=== PATIENT | female | born 1965 | race African-American/Black ===

== ENCOUNTER 2022-04-05 07:39 | Emergency (ER) | payer SELFPAY ==
[2022-04-05] VITALS (15 sets, daily range): BP systolic 138–164; BP diastolic 73–85; PULSE 55–78; RESP 12–20; TEMP 36.7–37.2; O2SAT 98–100
--- NOTE | ~2022-04-05 | XR_ITS ---
EXAMINATION: XR chest 2V 04/05/2022 07:54 INDICATION: Flu symptoms. Shortness of breath. PROCEDURE: 2 view chest COMPARISON: No prior studies for comparison. FINDINGS: The lungs are clear. The cardiomediastinal silhouette is within normal limits. There are no pleural effusions. There is no pneumothorax suspected. There are prominent bilateral nipple shad ows. IMPRESSION: 1: NO ACUTE CARDIOPULMONARY DISEASE. Reviewed, dictated and finalized at location A. UTE CONTROLLER
--- NOTE | 2022-04-05 07:42 | ECG_ITS ---
Measurements Intervals [place] Rate: 70 P: 71 [place]: 162 QRS: 1 QRSD: 102 T: 78 QT: 413 QTc: 446 Interpretive Statements SINUS RHYTHM DELAYED PRECORDIAL R/S TRANSITION NONSPECIFIC ST & T-WAVE ABNORMALITY- INF/HIGH LEADS NONSPECIFIC ST ELEVATION IN ANTEROLATERA LEADS BASELINE ARTIFACT- II, III BORDERLINE ECG NO PREVIOUS ECG AVAILABLE FOR COMPARISON Electronically Signed On 04-05-2022 10:08:30 UPHOL[employer] COVERS INSPECTOR by Andrea Young D.O.
[2022-04-05 08:00] LABS: Basophils Percent Auto 0.5 % (0.2-1.2); Eosinophils Absolute Auto 0.1 K/mm3 (0-0.3); Eosinophils Percent Auto 1.1 % (0-4.4); Hematocrit 37.5 % (37.0-47.0); Hemoglobin 12.5 g/dL (12.0-15.0); Immature Granulocyte Absolute 0.05 K/mm3 (0.00-0.031); Immature Granulocyte Percent A 0.7 % (0-0.5); Lymphocytes Absolute Auto 1.65 K/mm3 (0.9-3.2); Lymphocytes Percent Auto 22.4 % (18.3-44.2); Mean Corpuscular HGB Conc 33.3 g/dl (32-36); Mean Corpuscular Hemoglobin 29.8 pg (26-34); Mean Corpuscular Volume 89.3 fl (80-100); Mean Platelet Volume 11.5 fl (7.4-10.4); Monocytes Absolute Auto 0.8 K/mm3 (0.1-0.6); Monocytes Percent Auto 10.8 % (2.6-8.5); Neutrophils Absolute Auto 4.8 K/mm3 (1.3-6.7); Neutrophils Percent Auto 64.5 % (45.5-73.1); Platelet Count Result 240 k/mm3 (150-375); Red Cell Distribution Width 12.9 % (11.5-14.5); White Blood Count 7.4 K/mm3 (4.5-10.0)
[2022-04-05 08:13] LABS: Alanine Aminotransferase 30 U/L (6-35); Albumin Level 4.1 g/dL (3.5-5.1); Alkaline Phosphatase 105 U/L (38-126); Anion Gap 7 mmol/L (8-16); Aspartate Amino Transferase 33 U/L (14-36); Bilirubin,Total 0.6 mg/dL (0.2-1.3); Blood Urea Nitrogen 13 mg/dL (7-17); Calcium 9.2 mg/dL (8.4-10.2); Carbon Dioxide 27 mmol/L (22-30); Chloride 101 mmol/L (98-107); Estimated CRCL calculation 73 ml/min; Estimated Glomerular Filt Rate > 60; Glucose 308 mg/dL (65-110); Lipase 24 U/L (23-300); Partial Thromboplastin Time 23.7 SECONDS (22.3-36.8); Potassium 3.3 mmol/L (3.4-5.0); Prothrombin Time 12.5 Seconds (11.1-14.7); Sodium 135 mmol/L (137-145)
[2022-04-05 08:24] LABS: Troponin I 0.022 ng/mL (0.000-0.034)
--- NOTE | 2022-04-05 08:44 | ED.CHESTPAIN ---
HPI - Chest Pain General Chief Complaint: Chest Pain Stated Complaint: chest discomfort Time Seen by Provider: 04/05/22 07:46 Source: patient and RN notes reviewed Mode of arrival: EMS Limitations: no limitations History of Present Illness HPI narrative: This is a 56 year old female who presents for evaluation of chest pain. Patient states she has been dealing with cold symptoms for 4 days. She reports runny nose , congestion and cough. She reports approximately 1 hour ago she developed chest pain that she describes has sharp. Pain is located under her left breath. She also reports associated shortness of breath. She denies worsening pain with breathing, movement or exertion. She denies history of heart disease, DVT or PE. She reports her pain improved after getting aspirin from ambulance. She reports pain is 3/10. Related Data Allergies Allergy/AdvReac Type Severity Reaction Status Date / Time No Known Allergies Allergy Verified 04/05/22 07:41 Review of Systems Constitutional: Constitutional: Denies fever(s) and Denies weakness ENT: Reports nasal congestion and Reports sore throat Cardiovascular: Cardiovascular: Reports chest pain, Denies syncope, Denies rapid heart rate, Denies irregular heart rhythm, Reports leg edema (bilateral ankle) and Denies dyspnea Respiratory: Respiratory: Denies chest congestion, Reports cough, Denies hemoptysis, Denies excessive phlegm production and Reports dyspnea Gastrointestinal: Gastrointestinal: Denies abdominal pain, Denies hematochezia, Denies diarrhea and Denies vomiting Genitourinary: Genitourinary: Denies hematuria and Denies dysuria Musculoskeletal: Musculoskeletal: Denies joint swelling, Denies loss of height and Denies muscle weakness Neurologic: Denies syncope, Denies focal weakness and Denies weakness PMFSH Past Medical History Medical History (Updated 04/05/22 @ 17:45 by Merlyn Maldonado MD) Patient denies medical problems Surgical History Surgical History (Updated 04/05/22 @ 08:51 by Merlyn Maldonado MD) No pertinent past surgical history Social History Social History (Updated 04/05/22 @ 08:51 by Merlyn Maldonado MD) Smoking status: Current every day smoker Alcohol intake: former Substance use: former Substance use type: crack/cocaine Exam Const: General: alert Nutritional Appearance: well nourished Orientation/consciousness: patient oriented x3 Limitations: no limitations HENMT: Head: normal to inspection Eyes: EOM: EOMs intact bilaterally Neck: Neck: normal visual inspection Chest: Chest palpation & inspection: normal inspection of the chest Resp: Effort & Inspection: normal respiratory effort Auscultation: clear to auscultation bilaterally Cardio: Rate: regular rate Rhythm: regular rhythm Heart sounds: no murmurs GI: GI Palp: Yes Soft to palpation, No Tenderness to palpation present (GI), No Guarding due to palpation present (GI) and No Rigid due to palpation Auscultation: normal bowel sounds Skin: General skin exam: normal color Rashes: no rashes Wounds: no wounds Neuro: General: patient oriented x3, moves all extremities and CN's II-XI intact bilaterally Cranial nerves: Yes Nystagmus not present Speech: normal speech Gait exam (Neuro): Normal gait present Extrem: General: normal to inspection Psych: Mental Status: mental status grossly normal Affect: normal affect Attitude: cooperative Course Course Emergency Course: @1744, I was reviewing patient's chart. Her blood sugar was elevated to 300. I called her at home and notified her that she needs to see PCP for diabetes treatment. I will start on metformin. Reevaluation(s) Reevaluation #1: I Discussed with patient that no significant abnormalities. Troponin and d dimer are negative. She does not have major risk factors for PE/DVT. She is low risk per heart score. She also seems to be dealing with viral infection. Patient is stable for discharge
[2022-04-05 08:51] LABS: D Dimer 0.36 ug/mL (<0.48)
[2022-04-05 09:18] LABS: Influenza A QL RT-PCR Negative (Negative); Influenza B QL RT-PCR Negative (Negative); SARS-CoV-2 RNA PCR Negative
[2022-04-05 11:16] LABS: Troponin I 0.018 ng/mL (0.000-0.034)
== END 2022-04-05 12:13 | disposition home or self-care (01) ==
PROVIDERS: Emergency Provider General Practice
DX: R07.89 Other chest pain (principal); R73.9 Hyperglycemia, unspecified; Z20.822 Contact with and (suspected) exposure to COVID-19; F17.200 Nicotine dependence, unspecified, uncomplicated; R94.31 Abnormal electrocardiogram [ECG] [EKG]
CPT/HCPCS: 36415; 71046; 80053; 83690; 84484; 85025; 85380; 85610; 85730; 87636; 93005; 99284

== ENCOUNTER 2022-06-03 14:09 | Emergency (ER) | payer MEDICAID, SELFPAY ==
--- NOTE | ~2022-06-03 | XR_ITS ---
XR chest 2V DATE: 06/03/2022 16:23 INDICATION: Cough, cold symptoms for 4 days TECHNIQUE: PA and lateral views COMPARISON: 04/05/2022 PA and lateral chest FINDINGS: Normal heart size. Aortic arch calcification. No hilar or mediastinal enlargement. No pulmo nary infiltrate or consolidation, pleural effusion or pulmonary vascular congestion or pneumothorax. IMPRESSION: No active cardiopulmonary disease Reviewed, dictated and finalized at location L. ROD MAKER
[2022-06-03 14:11] VITALS: BP 141/93; PULSE 82; RESP 16; TEMP 36.4; O2SAT 99
[2022-06-03 15:34] VITALS: O2SAT 100
--- NOTE | 2022-06-03 16:10 | ECG_ITS ---
Measurements Intervals [place] Rate: 64 P: 28 [place]: 159 QRS: 9 QRSD: 103 T: 68 QT: 470 QTc: 488 Interpretive Statements SINUS RHYTHM RSR' IN V1 OR V2, CONSIDER RIGHT VENTRICULAR HYPERTROPHY OR RIGHT VCD NONSPECIFIC T-WAVE ABNORMALITY PROLONGED QT INTERVAL ABNORMAL ECG COMPARED TO ECG 04/05/2022 07:42:23 PROLONGED QT INTERVAL NOW PRESENT Electronically Signed On 06-03-2022 16:38:26 TECHNICAL AID by Andrea Young D.O.
[2022-06-03] MEDS: ALBUTEROL SULFATE (*SP) AEROSOL 1 PUFF 2 PUFF INHALATION (16:38)
[2022-06-03 16:53] LABS: Influenza A QL RT-PCR Negative (Negative); Influenza B QL RT-PCR Negative (Negative); RSV RNA, RT-PCR Negative (Negative); SARS-CoV-2 RNA PCR Negative
[2022-06-03 16:59] LABS: Basophils Percent Auto 0.4 % (0.2-1.2); Eosinophils Absolute Auto 0.1 K/mm3 (0-0.3); Eosinophils Percent Auto 1.6 % (0-4.4); Hemoglobin 13.4 g/dL (12.0-15.0); Immature Granulocyte Absolute 0.06 K/mm3 (0.00-0.031); Immature Granulocyte Percent A 1.1 % (0-0.5); Lymphocytes Absolute Auto 1.25 K/mm3 (0.9-3.2); Lymphocytes Percent Auto 21.9 % (18.3-44.2); Mean Corpuscular HGB Conc 32.7 g/dl (32-36); Mean Corpuscular Hemoglobin 30.1 pg (26-34); Mean Corpuscular Volume 92.1 fl (80-100); Mean Platelet Volume 11.6 fl (7.4-10.4); Monocytes Absolute Auto 0.5 K/mm3 (0.1-0.6); Monocytes Percent Auto 9.3 % (2.6-8.5); Neutrophils Absolute Auto 3.8 K/mm3 (1.3-6.7); Neutrophils Percent Auto 65.7 % (45.5-73.1); Platelet Count Result 217 k/mm3 (150-375); Red Blood Count 4.45 M/mm3 (4.2-5.4); Red Cell Distribution Width 12.7 % (11.5-14.5); White Blood Count 5.7 K/mm3 (4.5-10.0)
[2022-06-03 17:09] LABS: Alanine Aminotransferase 28 U/L (6-35); Albumin Level 4.2 g/dL (3.5-5.1); Alkaline Phosphatase 101 U/L (38-126); Anion Gap 4 mmol/L (8-16); Aspartate Amino Transferase 31 U/L (14-36); Bilirubin,Total 0.5 mg/dL (0.2-1.3); Blood Urea Nitrogen 19 mg/dL (7-17); Calcium 9.1 mg/dL (8.4-10.2); Carbon Dioxide 29 mmol/L (22-30); Chloride 102 mmol/L (98-107); Estimated CRCL calculation 66 ml/min; Estimated Glomerular Filt Rate > 60; Glucose 179 mg/dL (65-110); Potassium 3.6 mmol/L (3.4-5.0); Sodium 135 mmol/L (137-145)
[2022-06-03 17:26] LABS: Appearance Urine Cloudy (Clear); Bacteria Urine 4+ /hpf; Bilirubin Urine Negative (Negative); Blood Urine Negative (Negative); Color Urine Yellow (Yellow); Glucose Urine UA Trace mg/dL (Negative); Ketones Urine Trace mg/dL (Negative); Leukocyte Esterase Ur 2+ LEU/UL (Negative); Nitrate Urine Positive (Negative); Non Pathogenic Casts 0-2; Protein Urine Trace mg/dL (Negative); RBC Urine 0-2 /hpf (0-2); Specific Grav Ur 1.028 (1.001-1.035); Squamous Epithelial Cell Urine Few /hpf (Few); pH Urine 6.5 (5.0-9.0)
[2022-06-03 17:29] LABS: Add Urine Microscopic? YES
[2022-06-03] MEDS: ALBUTEROL SULFATE NEB 2.5 MG/3 ML INH INHALATION (18:02)
[2022-06-03] MEDS: IPRATROPIUM BR 0.02% INH SOLN 0.5 MG/2.5 ML VIAL INHALATION (18:02)
[2022-06-03 18:09] VITALS: BP 177/83; PULSE 57; RESP 14; O2SAT 100
--- NOTE | 2022-06-03 18:11 | ED.URI ---
HPI - URI/Sore Throat General Chief Complaint: Upper Respiratory Infection Stated Complaint: SOB Time Seen by Provider: 06/03/22 16:07 Source: patient, RN notes reviewed and old records reviewed Mode of arrival: ambulatory Limitations: no limitations History of Present Illness HPI Narrative: This is a 56 year old female who presents for evaluation of URI symptoms. Patient reports runny nose, congestion, and cough for 3 days. She reports wheezing and shortness of breath, but she denies chest pain. She denies fever, chills, nausea, vomiting and diarrhea. She also reports left breast lump for a few weeks. She denies any skin changes, drainage , or nipple drainage. She denies having mammogram in several years. She denies sick contacts. Related Data Allergies Allergy/AdvReac Type Severity Reaction Status Date / Time No Known Allergies Allergy Verified 06/03/22 15:38 Review of Systems Constitutional: Constitutional: Denies weakness ENT: Reports nasal congestion Cardiovascular: Cardiovascular: Denies syncope, Denies rapid heart rate, Denies irregular heart rhythm, Denies leg edema and Denies dyspnea Respiratory: Respiratory: Reports chest congestion, Reports cough, Denies hemoptysis, Denies excessive phlegm production, Reports dyspnea and Reports wheezing Gastrointestinal: Gastrointestinal: Denies abdominal pain, Denies hematochezia, Denies diarrhea and Denies vomiting Genitourinary: Genitourinary: Denies hematuria and Denies dysuria Musculoskeletal: Musculoskeletal: Denies joint swelling, Denies loss of height and Denies muscle weakness Neurologic: Denies syncope, Denies focal weakness and Denies weakness PMFSH Past Medical History Medical History (Updated 06/03/22 @ 19:42 by Merlyn Maldonado MD) Patient denies medical problems Surgical History Surgical History (Updated 04/05/22 @ 08:51 by Merlyn Maldonado MD) No pertinent past surgical history Social History Social History (Updated 04/05/22 @ 08:51 by Merlyn Maldonado MD) Smoking status: Current every day smoker Alcohol intake: former Substance use: former Substance use type: crack/cocaine Exam Const: General: no acute distress and alert Nutritional Appearance: well nourished Orientation/consciousness: patient oriented x3 Limitations: no limitations HENMT: Head: normal to inspection Ears: external ears normal Face and sinus: normal facial exam and sinuses nontender Mouth: Yes Normal oral and palatal mucosa present Throat: posterior oropharynx normal Eyes: Conjunctivae: conjunctivae normal Pupils: Equal, round and reactive pupils present EOM: EOMs intact bilaterally Neck: Neck: normal visual inspection Chest: Chest palpation & inspection: normal inspection of the chest Breast/axilla inspection: abnormal inspection of the breast (left breast at 8 0 clock lower hard nodule) Resp: Effort & Inspection: normal respiratory effort Auscultation: wheezes expiratory wheezes and throughout Other: able to speak in complete sentences Cardio: Rate: regular rate Rhythm: regular rhythm Heart sounds: no murmurs GI: GI Palp: Yes Soft to palpation, No Tenderness to palpation present (GI), No Guarding due to palpation present (GI) and No Rigid due to palpation Auscultation: normal bowel sounds Back/Spine/Pelvis: Back: no CVA tenderness Skin: General skin exam: normal color Rashes: no rashes Wounds: no wounds Neuro: General: patient oriented x3, moves all extremities and CN's II-XI intact bilaterally Cranial nerves: Yes Nystagmus not present Speech: normal speech Gait exam (Neuro): Normal gait present Psych: Mental Status: mental status grossly normal Affect: normal affect Attitude: cooperative Course Reevaluation(s) Reevaluation #1: Patient reports that she feels better. I Discussed she will be treated for bronchitis. I also stressed that she needs to follow up with for evaluation of left breast lump with mammogram at least.
== END 2022-06-03 19:29 | disposition home or self-care (01) ==
PROVIDERS: Emergency Medicine; Emergency Provider General Practice
DX: J20.9 Acute bronchitis, unspecified (principal); J06.9 Acute upper respiratory infection, unspecified; N39.0 Urinary tract infection, site not specified; N63.24 Unspecified lump in the left breast, lower inner quadrant; Z20.822 Contact with and (suspected) exposure to COVID-19; F17.200 Nicotine dependence, unspecified, uncomplicated; R94.31 Abnormal electrocardiogram [ECG] [EKG]
CPT/HCPCS: 36415; 71046; 80053; 81001; 85025; 87077; 87086; 87186; 87637; 93005; 94640; 94664; 99283; A9270

== ENCOUNTER 2022-08-21 07:30 | Emergency (ER) | payer OTHER, SELFPAY ==
[2022-08-21] VITALS (8 sets, daily range): BP systolic 141–160; BP diastolic 75–94; PULSE 56–75; RESP 12–19; O2SAT 94–100
--- NOTE | ~2022-08-21 | CT_ITS ---
EXAMINATION: CT BRAIN W/O DATE: 08/21/2022 08:02 INDICATION: Altered mental status TECHNIQUE: Computed tomography (CT) of the head was performed without intravenous contrast. The dose- length product was 605.33 mGy-cm. Automated exposure control and iterative reconstruction technique w ere employed. COMPARISON: No prior studies for comparison. FINDINGS: Normal brain parenchymal volume for age. Normal sanchez-white differentiation. No acute intrac ranial hemorrhage, infarction, mass or mass effect. No ventriculomegaly or midline shift. Midline sagittal images demonstrate a normal corpus callosum, c raniovertebral junction and sella turcica. Basilar cisterns are patent. Paranasal sinuses and mastoids are pneumatized. No depressed skull fractures. IMPRESSION: 1. No acute intracranial abnormality. Reviewed, dictated and finalized at location D.
--- NOTE | 2022-08-21 07:37 | ECG_ITS ---
Measurements Intervals [place] Rate: 55 P: 64 [place]: 167 QRS: -7 QRSD: 106 T: 61 QT: 465 QTc: 449 Interpretive Statements SINUS BRADYCARDIA WITH SINUS ARRHYTHMIA CANNOT RULE OUT SEPTAL INFARCT, AGE INDETERMINATE BASELINE WANDER- V3-V4 ABNORMAL ECG COMPARED TO ECG 06/03/2022 16:29:14 SINUS BRADYCARDIA NOW PRESENT SINUS ARRHYTHMIA NOW PRESENT MYOCARDIAL INFARCT FINDING NOW PRESENT PROLONGED QT INTERVAL NO LONGER PRESENT Electronically Signed On 08-21-2022 8:13:45 CDT by Andrea Young D.O.
[2022-08-21 07:42] LABS: Glucose Point of Care 180 mg/dl (65-105)
[2022-08-21 07:46] LABS: Basophils Absolute Auto 0.1 K/mm3 (0.0-0.1); Basophils Percent Auto 0.9 % (0.2-1.2); Eosinophils Absolute Auto 0.1 K/mm3 (0-0.3); Eosinophils Percent Auto 1.6 % (0-4.4); Hematocrit 34.6 % (37.0-47.0); Hemoglobin 11.2 g/dL (12.0-15.0); Immature Granulocyte Absolute 0.02 K/mm3 (0.00-0.031); Immature Granulocyte Percent A 0.4 % (0-0.5); Lymphocytes Absolute Auto 1.92 K/mm3 (0.9-3.2); Lymphocytes Percent Auto 33.9 % (18.3-44.2); Mean Corpuscular HGB Conc 32.4 g/dl (32-36); Mean Corpuscular Hemoglobin 29.7 pg (26-34); Mean Corpuscular Volume 91.8 fl (80-100); Mean Platelet Volume 12.2 fl (7.4-10.4); Monocytes Absolute Auto 0.5 K/mm3 (0.1-0.6); Monocytes Percent Auto 8.3 % (2.6-8.5); Neutrophils Absolute Auto 3.1 K/mm3 (1.3-6.7); Neutrophils Percent Auto 54.9 % (45.5-73.1); Platelet Count Result 204 k/mm3 (150-375); Red Blood Count 3.77 M/mm3 (4.2-5.4); Red Cell Distribution Width 13.2 % (11.5-14.5); White Blood Count 5.7 K/mm3 (4.5-10.0)
[2022-08-21] MEDS: SODIUM CHLORIDE 0.9% IV 1,000 ML 999 ML IV CONT (07:55)
[2022-08-21 07:57] LABS: Alanine Aminotransferase 27 U/L (6-35); Albumin Level 3.8 g/dL (3.5-5.1); Alkaline Phosphatase 86 U/L (38-126); Anion Gap 2 mmol/L (8-16); Aspartate Amino Transferase 42 U/L (14-36); Bilirubin,Total 0.5 mg/dL (0.2-1.3); Blood Urea Nitrogen 14 mg/dL (7-17); Calcium 8.9 mg/dL (8.4-10.2); Carbon Dioxide 30 mmol/L (22-30); Chloride 103 mmol/L (98-107); Estimated CRCL calculation 85 ml/min; Estimated Glomerular Filt Rate > 60; Glucose 200 mg/dL (65-110); Potassium 3.7 mmol/L (3.4-5.0); Sodium 135 mmol/L (137-145)
--- NOTE | 2022-08-21 08:17 | ED.GENADULT ---
HPI - General Adult General Chief complaint: Syncope Stated complaint: syncopy Time Seen by Provider: 08/21/22 07:36 History of Present Illness HPI narrative: 57-year-old female presented the emergency department for evaluation of some confusion and not feeling well. Patient states while she was at work she felt warm and dizzy and lightheaded. Patient states she did not actually have loss of consciousness. Patient is a type II diabetic and states her blood sugars were running high this morning. When EMS checked her blood sugars were in the 200 range. Upon arrival to the emerged department patient states she does feel improved. Patient states she no longer feels confused lightheaded or dizzy. During this episode patient denied any associated focal numbness or weakness. Patient states she does have some chronic right leg pain has been ongoing for the last few months. Related Data Allergies Allergy/AdvReac Type Severity Reaction Status Date / Time No Known Allergies Allergy Verified 06/03/22 15:38 Review of Systems Review of Systems: All systems reviewed & are unremarkable except as noted in HPI and below PMFSH Past Medical History Medical History (Updated 08/21/22 @ 10:03 by Martin Santos MD) Patient denies medical problems Surgical History Surgical History (Updated 04/05/22 @ 08:51 by Merlyn Maldonado MD) No pertinent past surgical history Social History Social History (Updated 04/05/22 @ 08:51 by Merlyn Maldonado MD) Smoking status: Current every day smoker Alcohol intake: former Substance use: former Substance use type: crack/cocaine Exam Narrative: APPEARANCE: Well appearing, no pain, no distress, well-nourished. HEAD: normocephalic, atraumatic. EYES: PERRLA/EOMI, conjunctivae clear. NOSE: Normal no drainage NECK: Supple. No adenopathy, no masses. RESPIRATORY: Airway patent, respirations nonlabored. Clear to auscultation bilaterally, no rales, rhonchi, wheezing. CARDIOVASCULAR: Regular rate and rhythm without murmurs rubs or gallops. ABDOMINAL: Soft, nontender, nondistended, normal bowel sounds MUSCULOSKELETAL: Moves all extremities. Strength/ROM intact, No edema, No calf tenderness. NEURO: Alert. Cranial nerves II through XII intact. Grossly SKIN: Warm, dry. Normal Color Course Course Emergency Course: 57-year-old female presented the ED for evaluation of near syncope. Patient does feel improved in the ED. Patient was treated with IV fluids. Patient's orthostatic vitals were within normal limits. Patient is afebrile with no leukocytosis. Patient's creatinine is 0.6. Patient's glucose is stable at 200. On reevaluation patient states he does feel improved. Head CT showed no acute intracranial normalities. Patient was able to ambulate without issue. Patient had normal orthostatic vitals. Patient was encouraged of close follow-up with her primary care physician. Patient was updated on the results of her work-up. Patient was also educated on reasons to return to the emergency room. All questions and concerns were addressed. Vital Signs Vital signs: Vital Signs Pulse Rate 56 L 08/21/22 07:34 Respiratory Rate 12 08/21/22 07:34 Blood Pressure 148/86 H 08/21/22 07:34 Pulse Oximetry 100 08/21/22 07:34 Oxygen Delivery Room Air 08/21/22 07:34 Pulse Rate 66 08/21/22 10:29 Respiratory Rate 14 08/21/22 10:29 Blood Pressure 141/75 H 08/21/22 10:29 Pulse Oximetry 94 08/21/22 10:29 Oxygen Delivery Room Air 08/21/22 07:34 Medical Decision Making Differential Diagnosis Differential Diagnosis: Hypoglycemia, orthostatic hypotension, vasovagal syncope Vital Signs Vital Signs: Vital Signs Pulse Rate 56 L 08/21/22 07:34 Respiratory Rate 12 08/21/22 07:34 Blood Pressure 148/86 H 08/21/22 07:34 Pulse Oximetry 100 08/21/22 07:34 Oxygen Delivery Room Air 08/21/22 07:34 Pulse Rate 66 08/21/22 10:29 Respiratory Rate 14
[2022-08-21 08:40] LABS: Appearance Urine Turbid (Clear); Bacteria Urine None Seen /hpf; Bilirubin Urine Negative (Negative); Blood Urine Negative (Negative); Color Urine Dark Yellow (Yellow); Glucose Urine UA Trace mg/dL (Negative); Hyaline Casts Urine Present /lpf; Ketones Urine Trace mg/dL (Negative); Leukocyte Esterase Ur Negative LEU/UL (Negative); Mucus Urine Present /lpf; Nitrate Urine Negative (Negative); Protein Urine 1+ mg/dL (Negative); Squamous Epithelial Cell Urine Moderate /hpf (Few); WBC Urine 0-5 /hpf; pH Urine 5.5 (5.0-9.0)
[2022-08-21 08:41] LABS: Add Urine Microscopic? YES
== END 2022-08-21 10:31 | disposition home or self-care (01) ==
PROVIDERS: Emergency Provider Emergency Medicine
DX: R55 Syncope and collapse (principal); E11.9 Type 2 diabetes mellitus without complications; F17.200 Nicotine dependence, unspecified, uncomplicated; Z79.4 Long term (current) use of insulin
CPT/HCPCS: 36415; 70450; 80053; 81001; 82948; 85025; 93005; 96360; 96361; 99284; J7030

== ENCOUNTER 2023-02-06 23:14 | Emergency (ER) | payer OTHER, SELFPAY ==
--- NOTE | ~2023-02-06 | XR_ITS ---
EXAMINATION: XR chest 2V DATE: 02/07/2023 01:06 INDICATION: Cough. TECHNIQUE: Frontal and lateral views of the chest were obtained. COMPARISON: Chest 2 views 06/03/22 FINDINGS: There is no pneumonia, pleural effusion, or pneumothorax. The heart size is normal. IMPRESSION: 1. No acute cardiopulmonary disease. Reviewed, dictated and finalized at location E. AULIC PLUMBER HELPER
[2023-02-06 23:18] VITALS: BP 163/78; PULSE 81; RESP 20; TEMP 36.1; O2SAT 99
[2023-02-06 23:53] VITALS: BP 150/77; PULSE 89; RESP 20; TEMP 36.8; O2SAT 95; O2SAT 97
[2023-02-07 00:45] VITALS: BP 180/91; PULSE 88; O2SAT 97
[2023-02-07] MEDS: SODIUM CHLORIDE 0.9% IV 500 ML 999 ML IV CONT (00:54)
[2023-02-07 01:00] LABS: Basophils Absolute Auto 0.1 K/mm3 (0.0-0.1); Basophils Percent Auto 0.6 % (0.2-1.2); Eosinophils Absolute Auto 0.1 K/mm3 (0-0.3); Eosinophils Percent Auto 0.9 % (0-4.4); Hematocrit 38.4 % (37.0-47.0); Hemoglobin 12.8 g/dL (12.0-15.0); Immature Granulocyte Absolute 0.15 K/mm3 (0.00-0.031); Immature Granulocyte Percent A 1.4 % (0-0.5); Lymphocytes Absolute Auto 1.95 K/mm3 (0.9-3.2); Lymphocytes Percent Auto 18.7 % (18.3-44.2); Mean Corpuscular HGB Conc 33.3 g/dl (32-36); Mean Corpuscular Hemoglobin 29.7 pg (26-34); Mean Corpuscular Volume 89.1 fl (80-100); Mean Platelet Volume 12.1 fl (7.4-10.4); Monocytes Absolute Auto 1.1 K/mm3 (0.1-0.6); Monocytes Percent Auto 10.6 % (2.6-8.5); Neutrophils Absolute Auto 7.1 K/mm3 (1.3-6.7); Neutrophils Percent Auto 67.8 % (45.5-73.1); Platelet Count Result 246 k/mm3 (150-375); Red Blood Count 4.31 M/mm3 (4.2-5.4); Red Cell Distribution Width 12.4 % (11.5-14.5); White Blood Count 10.4 K/mm3 (4.5-10.0)
[2023-02-07 01:13] LABS: Alanine Aminotransferase 23 U/L (6-35); Albumin Level 4.5 g/dL (3.5-5.1); Alkaline Phosphatase 98 U/L (38-126); Anion Gap 11 mmol/L (8-16); Aspartate Amino Transferase 37 U/L (14-36); Bilirubin,Total 0.9 mg/dL (0.2-1.3); Blood Urea Nitrogen 26 mg/dL (7-17); Calcium 9.9 mg/dL (8.4-10.2); Carbon Dioxide 28 mmol/L (22-30); Chloride 96 mmol/L (98-107); Estimated CRCL calculation 66 ml/min; Estimated Glomerular Filt Rate > 60; Glucose 213 mg/dL (65-110); Potassium 3.4 mmol/L (3.4-5.0); Sodium 135 mmol/L (137-145)
[2023-02-07 01:37] LABS: Influenza A QL RT-PCR Negative (Negative); Influenza B QL RT-PCR Negative (Negative); RSV RNA, RT-PCR Positive (Negative); SARS-CoV-2 RNA PCR Negative (Negative)
--- NOTE | 2023-02-07 01:57 | ED.URI ---
HPI - URI/Sore Throat General Chief Complaint: Upper Respiratory Infection Stated Complaint: cough/cold sxs, vomiting Time Seen by Provider: 02/07/23 00:16 Source: patient Mode of arrival: ambulatory Limitations: no limitations History of Present Illness HPI Narrative: 57-year-old female presents today with complaints of cough congestion runny nose started couple days ago. Denies any nausea, vomiting, diarrhea. States chills but no fever. States she just has not felt well. Does endorse sick contacts or family members. States they were seen at urgent care but she does not think they were diagnosed with anything but a URI. Related Data Allergies Allergy/AdvReac Type Severity Reaction Status Date / Time No Known Allergies Allergy Verified 02/06/23 23:56 Review of Systems Review of Systems: All systems reviewed & are unremarkable except as noted in HPI and below PMFSH Past Medical History Medical History (Updated 02/07/23 @ 02:00 by Heavenly Hall APRN) Patient denies medical problems Surgical History Surgical History (Updated 04/05/22 @ 08:51 by Merlyn Maldonado MD) No pertinent past surgical history Social History Social History (Updated 04/05/22 @ 08:51 by Merlyn Maldonado MD) Smoking status: Current every day smoker Alcohol intake: former Substance use: former Substance use type: crack/cocaine Exam Const: General: cooperative, no acute distress, alert and awake Orientation/consciousness: oriented to person, oriented to place, oriented to time and patient oriented x3 HENMT: Head: normal to inspection Ears: hearing grossly normal bilaterally, external ears normal and TM's normal bilaterally Face/Nose/Sinus: Normal external nose present and Normal nares present Mouth: Yes Normal oral and palatal mucosa present, Yes oropharynx normal and Yes moist mucous membranes Eyes: General: appearance normal, both eyes and all related structures Conjunctivae: conjunctivae normal Pupils: Equal, round and reactive pupils present EOM: EOMs intact bilaterally Neck: Neck: normal visual inspection, full ROM, no lymphadenopathy and trachea midline Chest: Chest palpation & inspection: normal inspection of the chest Resp: Effort & Inspection: normal respiratory effort and able to speak in complete sentences Auscultation: clear to auscultation bilaterally Cardio: Rate: regular rate Rhythm: regular rhythm Heart sounds: S1 normal heart sound present and S2 normal heart sound present GI: Inspection: normal to inspection GI Palp: Yes Soft to palpation Auscultation: normal bowel sounds Skin: General skin exam: normal color and no rashes or lesions noted Neuro: General: oriented to person, oriented to place, oriented to time and patient oriented x3 Cranial nerves: Yes Equal, round and reactive pupils present Speech: normal speech Extrem: General: no pedal edema Psych: Appearance: grossly normal Attitude: cooperative Course Vital Signs Vital signs: Vital Signs Temperature 97.0 F L 02/06/23 23:18 Pulse Rate 81 02/06/23 23:18 Respiratory Rate 20 02/06/23 23:18 Blood Pressure 163/78 H 02/06/23 23:18 Pulse Oximetry 99 02/06/23 23:18 Oxygen Delivery Room Air 02/06/23 23:18 Temperature 98.3 F 02/06/23 23:53 Pulse Rate 80 02/07/23 02:16 Respiratory Rate 20 02/06/23 23:53 Blood Pressure 138/62 02/07/23 02:16 Pulse Oximetry 93 02/07/23 02:16 Oxygen Delivery Room Air 02/06/23 23:53 MDM - URI/Sore Throat MDM Narrative Medical decision making narrative: 57-year-old female HPI is no differential of below. Cbc without acute findings but wbc's at 10.4. CMP without concerning findings glucose is 213 but patient is diabetic. Influenza negative, RSV positive, preliminary reading of the chest x-ray shows no obvious infiltrates. Symptomatic treatment for RSV. Patient is not short of breath and oxygen level is 99 on room air. Will discharge home symptomatic treatme
[2023-02-07 02:16] VITALS: BP 138/62; PULSE 80; O2SAT 93
[2023-02-07] MEDS: KETOROLAC 15 MG/ML VIAL (*BKC) IV PUSH (02:24)
== END 2023-02-07 02:19 | disposition home or self-care (01) ==
PROVIDERS: Emergency Provider Nurse Practitioner Family
DX: R05.9 Cough, unspecified (principal); B97.4 Respiratory syncytial virus as the cause of diseases classified elsewhere; F17.200 Nicotine dependence, unspecified, uncomplicated; Z20.822 Contact with and (suspected) exposure to COVID-19
CPT/HCPCS: 36415; 71046; 80053; 85025; 87637; 96361; 96374; 99284; J1885; J7040

== ENCOUNTER 2024-08-19 11:06 | Emergency (ER) | payer OTHER, SELFPAY ==
--- NOTE | ~2024-08-19 | XR_ITS ---
Clinical Indication: Cough PA and lateral views of the chest: Comparison: 02/07/2023 Findings: The lungs are clear, without evidence of focal consolidation or pleural effusion. Cardiome diastinal silhouette is within normal limits. Bones and soft tissues are unremarkable. Impression: Clear lungs. Possible COPD. Reviewed, dictated and finalized at location . Impression: Clear lungs. Possible COPD.
[2024-08-19 11:09] VITALS: BP 112/86; PULSE 92; RESP 18; TEMP 36.6; O2SAT 97
--- OUTSIDE RECORDS SUMMARY | 2024-08-19 11:10 | XMS_ITS | CONTINUITY OF CARE DOCUMENT ---
Author Name ernesto orozco Address Unknown Organization [facility] Address [address] [place] [address] Phone [phone] Care Team Providers Care Hr Payroll Coordinator Name Role Phone Eugene Clarke MD Unavailable [phone] Eugene Clarke MD Unavailable [phone] INSURANCE PROVIDERS Payer name Policy type / Coverage type [place] [employer] Medicaid 1 [id number]
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
--- OUTSIDE RECORDS SUMMARY | 2024-08-19 11:10 | XMS_ITS | Encounter Summary ---
Author Organization [facility] Address [address] [place] [address] Care Team Providers Care Needle Loom Operator Helper Name Role Phone Richmond Duncan MD Primary Care Provider [phone] Reason for Visit * Reason Onset Date Comments Hypertension 08/19/2024 Dizziness 08/19/2024 Encounter Details Date Type Department Care Team (Late st Contact Info) Description 08/19/2024 Nurse Triage [facility] Family Medicine at [address] [phone] Richmond Duncan MD [address] [place] [address] Social History Tobacco Use Types Packs/Day Years Used Date Smoking Tobacco: Every Day Cigarettes AUDIT-C Answer Date Recorded Q1: How often [...] on file 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 Intermittent dizziness, blurred bilateral vision. Onset 08/19/24 No fevers. No chest pain, palpations or SOB. No weakness to one side. No speech changes. No numbness to face. No headache. Disposition is ED now-pt agrees and is proceeding with a tank driver to [place] [facility]. Message routed for FYI-headed to ED * Telephone Encounter - Stacey Wilder RN - 08/19/2024 8:58 AM CDT Regarding: Elevated BP, Dizziness ----- Message from Yaritza Perez sent at 08/19/2024 8:56 AM CDT ----- Symptom Based Call Chief Complaint(s): Elevated BP, Dizziness Duration: this AM What type of symptom(s) is the patient experiencing? Red Flag. Is the patient concerned they are experiencing a medical emergency requiring an ambulance? No Additional Comments: Patient reports the following BP readings from this mornin/103 204/104 182/92 Patient states she has experienced a little bit of dizziness, denies headache/chest pain/SOB. Does message need to be routed? Yes-Action Needed documented in this encounter Plan of Treatment Not on file documented as of this encounter Visit Diagnoses Not on filedocumented in this encounter Care Teams Needle Loom Operator Helper Relationship Specialty Start Date End Date Richmond Duncan MD PCP - General Family Medicine 07/31/22 documented as of this encounter
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
--- OUTSIDE RECORDS SUMMARY | 2024-08-19 11:10 | XMS_ITS | Encounter Summary ---
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 Gender Identity Not on file Sexual Orientation Not on file documented as of this encounter Ordered Prescriptions Prescription Sig Dispense Quantity Refills Last Filled Start Date End Date metFORMIN (GLUCOPHAGE) 500 mg tablet Take 2 tablets (1,000 mg total) by mouth 2 (two) times a day with meals 120 tablet 5 08/03/2024 atorvastatin (LIPITOR) 20 mg tablet Take 1 tablet (20 mg total) by mouth daily 90 tablet 1 08/03/2024 documented in this encounter Plan of Treatment Scheduled Orders Name Type Priority Associated Diagnoses Orde r Schedule Lipid panel Lab Routine Type 2 diabetes mellitus with hyperglycemia, with long-term current use of insulin (HCC) Hyperlipidemia, unspecified hyperlipidemia type Expected: 11/01/2024 (Approximate), Expires: 08/03/2025 Hemoglobin A1c Lab Routine Type 2 diabetes mellitus with hyperglycemia, with long-term current use of insulin (HCC) Hyperlipidemia, unspecified hyperlipidemia type Expected: 11/01/2024 (Approximate), Expires: 08/03/2025 CBC with auto differential Lab Routine Type 2 diabetes mellitus with hyperglycemia, with long-term current use of insulin (HCC) Hyperlipidemia, unspecified hyperlipidemia type Expected: 11/01/2024 (Approximate), Expires: 08/03/2025 documented as of this encounter Visit Diagnoses Diagnosis Type 2 diabetes mellitus with hyperglycemia, with long-term current use of insulin (HCC)- Primary Hyperlipidemia, unspecified hyperlipidemia type documented in this encounter Discontinued Medications Medication Sig Discontinue Reason Start Date End Da te metFORMIN (GLUCOPHAGE) 500 mg tablet TAKE 1 TABLET BY MOUTH TWICE DAILY 01/04/2024 08/03/2024 atorvastatin (LIPITOR) 10 mg tablet TAKE 1 TABLET BY MOUTH DAILY 06/02/2024 08/03/2024 documented as of this encounter Care Teams Hunting And Fishing Guide Relationship Specialty Start Date End Date Richmond Duncan MD PCP - General Family Medicine 07/31/22 documented as of this encounter
[2024-08-19 11:14] VITALS: O2SAT 95
[2024-08-19 11:17] VITALS: BP 145/78; PULSE 89; RESP 17; O2SAT 100
--- OUTSIDE RECORDS SUMMARY | 2024-08-19 12:26 | XMS_ITS | Encounter Summary ---
Author Organization [facility] Healthcare Address [address] [place] [address] Care Team Providers Care Fabric Designer Name Role Phone Richmond Duncan MD Primary Care Provider [phone] Reason for Visit * Reason Onset Date Comments Hypertension 08/19/2024 Dizziness 08/19/2024 Encounter Details Date Type Department Care Team (Late st Contact Info) Description 08/19/2024 Nurse Triage [facility] Family Medicine at [address] [phone] Richmond Duncan MD [address] [place] [address] Social History Tobacco Use Types Packs/Day [...] on file 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 Message routed for FYI-headed to ED [...] on filedocumented in this encounter Care Teams Fabric Designer Relationship Specialty Start Date End Date Richmond Duncan MD PCP - General Family Medicine 07/31/22 documented as of this encounter
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
--- OUTSIDE RECORDS SUMMARY | 2024-08-19 12:27 | XMS_ITS | CONTINUITY OF CARE DOCUMENT ---
Author Name ernesto orozco Address Unknown Organization [facility] Address [address] [facility] [address] [place] [address] Phone [phone] Care Team Providers Care Senior Clinician Name Role Phone Eugene Clarke MD Unavailable [phone] Eugene Clarke MD Unavailable [phone] INSURANCE PROVIDERS Payer name Policy type / Coverage type [employer] [place] [facility] Medicaid 1 [id number]
--- OUTSIDE RECORDS SUMMARY | 2024-08-19 12:27 | XMS_ITS | Encounter Summary ---
Author Organization [facility] Address [address] [place] [address] Care Team Providers Care Online Project Manager Name Role Phone Richmond Duncan MD Primary Care Provider [phone] Encounter Details Date Type Department Care Team (Late st Contact Info) Description 08/01/2024 Results Follow-Up 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
[2024-08-19 12:48] LABS: Basophils Absolute Auto 0.1 K/mm3 (0.0-0.1); Basophils Percent Auto 0.8 % (0.2-1.2); Eosinophils Absolute Auto 0.1 K/mm3 (0-0.3); Eosinophils Percent Auto 0.6 % (0-4.4); Hematocrit 35.5 % (37.0-47.0); Hemoglobin 11.4 g/dL (12.0-15.0); Immature Granulocyte Absolute 0.07 K/mm3 (0.00-0.031); Immature Granulocyte Percent A 0.9 % (0-0.5); Lymphocytes Absolute Auto 1.42 K/mm3 (0.9-3.2); Lymphocytes Percent Auto 18.3 % (18.3-44.2); Mean Corpuscular HGB Conc 32.1 g/dl (32-36); Mean Corpuscular Hemoglobin 28.9 pg (26-34); Mean Corpuscular Volume 89.9 fl (80-100); Mean Platelet Volume 11.3 fl (7.4-10.4); Monocytes Absolute Auto 0.6 K/mm3 (0.1-0.6); Monocytes Percent Auto 7.7 % (2.6-8.5); Neutrophils Absolute Auto 5.6 K/mm3 (1.3-6.7); Neutrophils Percent Auto 71.7 % (45.5-73.1); Platelet Count Result 267 k/mm3 (150-375); Red Blood Count 3.95 M/mm3 (4.2-5.4); White Blood Count 7.8 K/mm3 (4.5-10.0)
[2024-08-19 12:58] LABS: Alanine Aminotransferase 33 U/L (6-35); Albumin Level 4.6 g/dL (3.5-5.1); Alkaline Phosphatase 73 U/L (38-126); Anion Gap 13 mmol/L (4-12); Aspartate Amino Transferase 42 U/L (14-36); Bilirubin,Total 0.5 mg/dL (0.2-1.3); Blood Urea Nitrogen 17 mg/dL (7-17); Calcium 9.7 mg/dL (8.4-10.2); Carbon Dioxide 23 mmol/L (22-30); Chloride 101 mmol/L (98-107); Estimated CRCL calculation 65 ml/min; Estimated Glomerular Filt Rate > 60; Glucose 155 mg/dL (65-110); Potassium 4.1 mmol/L (3.4-5.0); Sodium 137 mmol/L (137-145)
--- NOTE | 2024-08-19 13:16 | ED_ITS ---
HPI - General Adult General Chief complaint: Unspecified Stated complaint: High BP 203/107, BGL 201 Time Seen by Provider: 08/19/24 12:03 History of Present Illness HPI narrative: Patient is a 59-year-old female who presents ER with concerns for elevated blood pressures. She took her blood pressure an hour after taking her medications morning in her systolic blood pressures in the 200s. Since arriving here she has had normal blood pressures. No chest pain or shortness of breath. She has had sinus congestion with productive cough over the last 2 3 days. She is feeling chilled but has had no fevers. She has not been taking cough medicine. No vomiting. Related Data Allergies Allergy/AdvReac Type Severity Reaction Status Date / Time No Known Allergies Allergy Verified 08/19/24 11:08 Review of Systems 2 Review of Systems: All systems reviewed & are unremarkable except as noted in HPI and below Constitutional: Constitutional: Reports no additional constitutional complaints ENT: Reports system reviewed and no additional complaints, except as documented Cardiovascular: Cardiovascular: Reports no additional cardiovascular complaints Respiratory: Respiratory: Reports no additional respiratory complaints [facility] Past Medical History Medical History (Updated 08/19/24 @ 14:25 by Reji Parikh MD) Hypertension Surgical History Surgical History (Updated 04/05/22 @ 08:51 by Merlyn Maldonado MD) No pertinent past surgical history Social History Social History (Updated 04/05/22 @ 08:51 by Merlyn Maldonado MD) Smoking status: Current every day smoker Alcohol intake: former Substance use: former Substance use type: crack/cocaine Exam 2 Narrative: GENERAL: Well-appearing, well-nourished, and in no acute distress. HEAD: Normocephalic, atraumatic. ENT: Mucous membranes moist. NECK: Supple. CHEST: Clear to auscultation. No respiratory distress. HEART: Regular rate and rhythm. Normal peripheral pulses.. EXTREMITIES: Normal range of motion. No edema. SKIN: Warm, dry, no rash. NEURO: Alert and oriented x3. PSYCH: Normal mood and affect. Course Course Emergency Course: Will have his unremarkable. Chest x-ray negative. Recommend follow-up with PCP. Discussed blood pressure diary and ideal times and ways to take blood pressure. Discharge. Vital Signs Vital signs: Vital Signs Temperature 98 F 08/19/24 11:09 Pulse Rate 92 08/19/24 11:09 Respiratory Rate 18 08/19/24 11:09 Blood Pressure 112/86 08/19/24 11:09 Pulse Oximetry 97 08/19/24 11:09 Oxygen Delivery Room Air 08/19/24 11:09 Temperature 98 F 08/19/24 11:09 Pulse Rate 89 08/19/24 11:17 Respiratory Rate 17 08/19/24 11:17 Blood Pressure 145/78 H 08/19/24 11:17 Pulse Oximetry 100 08/19/24 11:17 Oxygen Delivery Room Air 08/19/24 11:09 Medical Decision Making Vital Signs Vital Signs: Vital Signs Temperature 98 F 08/19/24 11:09 Pulse Rate 92 08/19/24 11:09 Respiratory Rate 18 08/19/24 11:09 Blood Pressure 112/86 08/19/24 11:09 Pulse Oximetry 97 08/19/24 11:09 Oxygen Delivery Room Air 08/19/24 11:09 Temperature 98 F 08/19/24 11:09 Pulse Rate 89 08/19/24 11:17 Respiratory Rate 17 08/19/24 11:17 Blood Pressure 145/78 H 08/19/24 11:17 Pulse Oximetry 100 08/19/24 11:17 Oxygen Delivery Room Air 08/19/24 11:09 Lab Data 08/19/24 12:38 08/19/24 12:38 Labs: Lab Results 08/19/24 08/19/24 Range/Units 12:38 13:04 WBC 7.8 (4.5-10.0) K/mm3 RBC 3.95 L (4.2-5.4) M/mm3 Hgb 11.4 L (12.0-15.0) g/dL Hct 35.5 L (37.0-47.0) % MCV 89.9 (80-100) fl MCH 28.9 (26-34) pg MCHC 32.1 (32-36) g/dl RDW 13.0 (11.5-14.5) % Plt Count 267 (150-375) k/mm3 MPV 11.3 H (7.4-10.4) fl Immature Gran % (Auto) 0.9 H (0-0.5) % Neut % (Auto) 71.7 (45.5-73.1) % Lymph % (Auto) 18.3 (18.3-44.2) % [place] % (Auto) 7.7 (2.6-8.5) % Eos % (Auto) 0.6 (0-4.4) % Baso % (Auto) 0.8 (0.2-1.2) % Lymph # (Auto) 1.42 (0.9-3.2) K/mm3 [place] # (Auto) 0.6 (0.1-0.6) K/mm3 Eos # (Auto) 0.1 (0-0.3) K/mm3 Baso # (Auto) 0.1 (0.0-0.1) K/mm3 Abs Immat Gran (auto) 0.07 H (0.00-0.031) K/mm3 Absolute Neuts (auto) 5.6 (1.3-6.7) K/mm3 Absolute Nucleated RBC 0.000 (0.0-0.012) K/mm3 Nucleated RBC % 0.0 (0.0-0.2) % Sodium 137 (137-145) mmol/L Potassium 4.1 (3.4-5.0) mmol/L Chloride 101 (98-107) mmol/L Carbon Dioxide 23 (22-30) mmol/L Anion Gap 13 H (4-12) mmol/L BUN 17 (7-17) mg/dL Creatinine 0.79 (0.7-1.0) mg/dL Estim Creat Clear Calc 65 ml/min Estimated GFR > 60 (59 - ) Glucose 155 H (65-110) mg/dL Calcium 9.7 (8.4-10.2) mg/dL Total Bilirubin 0.5 (0.2-1.3) mg/dL AST 42 H (14-36) U/L ALT 33 (6-35) U/L Alkaline Phosphatase 73 (38-126) U/L Total Protein 8.0 (6.3-8.2) g/dL Albumin 4.6 (3.5-5.1) g/dL Influenza A (RT-PCR) Negative (Negative) Influenza B (RT-PCR) Negative (Negative) RSV (RT-PCR) Negative (Negative) SARS-CoV-2 RNA (RT-PCR) Negative (Negative) Discharge Plan Discharge Clinical Impression: Acute upper respiratory infection, Encounter for examination of blood pressure without abnormal findings Patient Disposition: Home Condition: Stable Instructions: Upper Respiratory Infection (ED) Additional Instructions: As discussed you have a viral illness. Unfortunately there are no specific medications we can give you to make the illness end faster. Antibiotics do not work for viral illnesses. However, you can take Acetaminophen or Ibuprofen to help with fevers and pain. Stay well hydrated and rested. Return to the emergency department if your fevers and chills continue to worse after 5 days, if you develop worsening cough with thick sputum, or are unable to stay hydrated. Contact your primary care provider in the next few days for a re-evaluation and to make sure your symptoms are improving. Patient Language: Croatian Prescriptions: No Action fluticasone propionate [24 Hour Allergy Relief] 50 mcg/actuation spray,suspension 2 spray intranasal DAILY Qty: 16 0RF Rx Instructions: administer into each nostril benzonatate 100 mg capsule 100 mg PO TID PRN (Reason: cough) Qty: 20 0RF metformin 500 mg tablet 500 mg PO BID Qty: 30 0RF albuterol sulfate 90 mcg/actuation HFA aerosol inhaler 2 puff inhalation QID PRN (Reason: shortness of breath or wheezing) Qty: 6.7 0RF cefuroxime axetil 500 mg tablet 500 mg PO BID Qty: 14 0RF prednisone 50 mg tablet 50 mg PO DAILY Qty: 5 0RF Follow-up/Referrals: Perla,Richmond Driscoll MD [Primary Care Provider] - 1 Week
[2024-08-19 13:59] LABS: Influenza A QL RT-PCR Negative (Negative); Influenza B QL RT-PCR Negative (Negative); RSV RNA, RT-PCR Negative (Negative); SARS-CoV-2 RNA PCR Negative (Negative)
[2024-08-19 14:29] VITALS: BP 142/66; PULSE 61; RESP 14; O2SAT 99
== END 2024-08-19 14:36 | disposition home or self-care (01) ==
PROVIDERS: Emergency Provider Emergency Medicine; PCP Family Medicine
DX: I10 Essential (primary) hypertension (principal); J06.9 Acute upper respiratory infection, unspecified; Z20.822 Contact with and (suspected) exposure to COVID-19; F17.200 Nicotine dependence, unspecified, uncomplicated; Z79.84 Long term (current) use of oral hypoglycemic drugs
CPT/HCPCS: 36415; 71046; 80053; 85025; 87637; 99283